=== PATIENT | male | born 1995 | race Caucasian/White ===

== ENCOUNTER 2021-02-06 22:37 | Emergency (ER) | payer OTHER ==
[~2021-02-06] VITALS: Ht 162.6 cm; Wt 61.5 kg
[2021-02-06] MEDS ORDERED: IV RINGERS SOLUTION,LACTATED 1,000 ML IV SCH (22:45)
--- NOTE | 2021-02-06 23:37 | RAD ---
Exam: Chest one view INDICATION: Mental status change TECHNIQUE: Frontal view of the chest Comparisons: None FINDINGS: The cardiomediastinal silhouette and pulmonary vessels are within normal limits. The lung and pleural spaces are clear. IMPRESSION: No acute cardiopulmonary process. Electronically signed by: Kerry Waterman MD (02/06/2021 11:34 PM) BLACK
--- NOTE | 2021-02-06 23:42 | PHYS DOC ---
Past History Past Medical History: No Pertinent History, Bronchitis, Hypertension Past Surgical History: No Surgical History Smoking: Cigarettes (hx.polysubstance abuse) Alcohol Use: None Social History Narrative: K2 General Adult EDM: Chief Complaint: DRUG ABUSE HPI: HPI: ". I was smoking some K-2.. got fucked up..." Patient is a 26 year old male prisoner from [facility] who presents with of altered mental status after smoking K-2. Patient reportedly had altered mental status at the present however was alert and oriented x3 on arrival at the emergency department. Patient did admit to smoking K2. Patient denies significant past medical history. No recent travel. No history of trauma. The patient has been serving a 16-month sentence for parole violation. Patient has past history of polysubstance abuse. Patient does use tobacco. No specific ill contacts but there have been other prisoners at [facility] who were diagnosed with Covid. Stacie ent denies history of immunosuppression. Patient denies any trauma. Patient denies any fever or chills.. Review of Systems: Review of Systems: Constitutional: Denies fever or chills Eyes: Denies change in visual acuity HENT: Denies nasal congestion or sore throat Respiratory: Denies cough or shortness of breath Cardiovascular: Denies chest pain or edema GI: Denies abdominal pain, nausea, vomiting, bloody stools or diarrhea : Denies dysuria Musculoskeletal: Denies back pain or joint pain Integument: Denies rash Neurologic: Denies headache, focal weakness or sensory changes . History of altered mental status after smoking K2 Endocrine: Denies polyuria or polydipsia Lymphatic: Denies swollen glands Psychiatric: Denies depression or anxiety Family History: Family History: Noncontributory to presentation Current Medications: Current Meds: Current Medications Medications (Trade) Dose Ordered Sig/Erin Start Time Stop Time Status Last Admin Dose Admin Lactated Ringer's 1,000 ml @ 1,000 mls/hr Q1H 02/06/21 22:45 02/06/21 23:44 Allergies: Allergies: Allergies Coded Allergies Type Severity Reaction Last Updated Verified No Known Drug Allergies 02/06/21 No Physical Exam: PE: Constitutional: no acute distress, non-toxic appearance. [] HENT: Normocephalic, atraumatic, bilateral external ears normal, oropharynx moist, no oral exudates, nose normal. [] Eyes: PERRLA, EOMI, conjunctiva normal, no discharge. [] Neck: Normal range of motion, no tenderness, supple, no stridor. [] Cardiovascular:Heart rate regular rhythm, no murmur [] Lungs & Thorax: Bilateral breath sounds equal apex with scattered wheezes on auscultation [] Abdomen: Bowel sounds decreased, soft, no tenderness, no masses, no pulsatile masses. [] Skin: Warm, dry, no erythema, no rash. Multiple tattoos. Back: No tenderness, no CVA tenderness. [] Extremities: No tenderness, no cyanosis, no clubbing, ROM intact, no edema. [] Neurologic: Alert and oriented X 3, moves all extremities on request, has distal sensory,, no focal deficits noted. [] Psychologic: Affect normal, judgement normal, mood normal. [] Current Patient Data: Vital Signs: Vital Signs Date Time Temp Pulse Resp B/P (MAP) Pulse Ox O2 Delivery O2 Flow Rate FiO2 02/06/21 22:47 97.9 91 18 128/80 (96) 96 Room Air EKG: EKG: My interpretation EKG shows sinus rhythm at 96 bpm. No acute morphology appreciated [] Radiology/Procedures: Radiology/Procedures: [][place] [address] IMAGING REPORT Signed PATIENT: LATOSHA RIVERSCCOUNT: [id number] : 1995 LOCATION: ER AGE: 26 SEX: M EXAM STATUS: PRE ER ORD. PHYSICIAN: KARINA RUEDA MD REASON: mental status change PROCEDURE: PORTABLE CHEST 1V Exam: Chest one view INDICATION: Mental status change TECHNIQUE: Frontal view of the chest Comparisons: None FINDINGS: The cardiomediastinal silhouette and pulmonary vessels are within normal limits. The lung and pleural spaces are clear. IMPRESSION: No acute cardiopulmonary process. Electronically signed by: Kerry West MD (02/06/2021 11:34 PM) [facility] DICTATED AND SIGNED BY: KERRY WEST MD DATE: 02/06/21 5922 CC: KARINA RUEDA MD ~MTH0 [address] [place] [address] IMAGING REPORT Signed PATIENT: DANELLE RIVERS: [id number] : 1995 LOCATION: ER AGE: 26 SEX: M EXAM STATUS: PRE ER ORD. PHYSICIAN: KARINA RUEDA MD REASON: mental status change PROCEDURE: PORTABLE CHEST 1V Exam: Chest one view INDICATION: Mental status change TECHNIQUE: Frontal view of the chest Comparisons: None FINDINGS: The cardiomediastinal silhouette and pulmonary vessels are within normal limits. The lung and pleural spaces are clear. IMPRESSION: No acute cardiopulmonary process. Electronically signed by: Kerry West MD (02/06/2021 11:34 PM) [facility] DICTATED AND SIGNED BY: KERRY WEST MD DATE: 02/06/21 0277 CC: KARINA RUEDA MD ~MTH0 0 Heart Score: C/O Chest Pain: No HEART Score for Chest Pain: HEART Score for Chest Pain Response (Comments) Value History Slighlty/Non-Suspicious 0 ECG Normal 0 Age < 45 0 Risk Factors 1 or 2 Risk Factors 1 Troponin < Normal Limit 0 Total 1 Risk Factors: Risk Factors: DM, Current or recent (<one month) smoker, HTN, HLP, family history of CAD, obesity. Risk Scores: Score 0 - 3: 2.5% MACE over next 6 weeks - Discharge Home Score 4 - 6: 20.3% MACE over next 6 weeks - Admit for Clinical Observation Score 7 - 10: 72.7% MACE over next 6 weeks - Early Invasive Strategies Course & Med Decision Making: Course & Med Decision Making Pertinent Labs and Imaging studies reviewed. (See chart for details) Avoid further illicit drug use. Follow-up elevated blood pressures. Return if any concerns. Impression: 1. Altered mental status-cleared 2. History of K-2 drug use 3. Mild leukocytosis 12.2 4. Mild anemia hemoglobin 11.6 5. Hypertension [] Dragon Disclaimer: Dragon Disclaimer: This electronic medical record was generated, in whole or in part, using a voice recognition dictation system. Dragon Disclaimer This chart was dictated in whole or in part using Voice Recognition software in a busy, high-work load, and often noisy Emergency Department environment. It may contain unintended and wholly unrecognized errors or omissions. KARINA RUEDA MD February 06, 2021 23:42
[2021-02-07 00:44] LABS: CALCIUM 8.5 mg/dL (8.5-10.1); CREATININE 1.3 mg/dL (0.7-1.3); GFR 67.3; POTASSIUM 3.7 mmol/L (3.5-5.1)
[2021-02-07 00:48] LABS: BASO # 0.1 x10^3/uL (0.0-0.2); BASO % 1 % (0-3); EOS # 0.1 x10^3/uL (0.0-0.7); EOS % 1 % (0-3); HEMOGLOBIN 11.6 g/dL (13.0-17.5); LYMPH # 2.1 x10^3/uL (1.0-4.8); LYMPH % 17 % (24-48); MEAN CORPUSCULAR HEMOGLOBIN 28 pg (25-35); MEAN CORPUSCULAR HGB CONC 33 g/dL (31-37); MEAN CORPUSCULAR VOLUME 86 fL (79-100); MONO # 1.1 x10^3/uL (0.0-1.1); MONO % 9 % (0-9); NEUT # 8.8 x10^3uL (1.8-7.7); NEUT % 72 % (31-73); PLATELET COUNT 361 x10^3/uL (140-400); RED CELL DISTRIBUTION WIDTH 15.7 % (11.5-14.5); WHITE BLOOD COUNT 12.2 x10^3/uL (4.0-11.0)
[2021-02-07 00:57] LABS: ALBUMIN 3.2 g/dL (3.4-5.0); BARBITURATES NEG (NEG); BENZODIAZEPINES NEG (NEG); CANNABINOIDS NEG (NEG); COCAINE NEG (NEG); DIRECT BILIRUBIN 0.1 mg/dL (0.0-0.2); METHADONE NEG (NEG); OPIATES NEG (NEG); PHENCYCLIDINE NEG (NEG); TOTAL BILIRUBIN 0.3 mg/dL (0.2-1.0); TOTAL PROTEIN 7.2 g/dL (6.4-8.2)
[2021-02-07 00:58] LABS: AMPHETAMINE/METHAMPHETAMINE NEG (NEG)
[2021-02-07 01:00] LABS: CLARITY,URINE HAZY; COLOR,URINE STRAW
[2021-02-07 01:01] LABS: BILIRUBIN,URINE NEG (NEG); GLUCOSE,URINE NEG (NEG); NITRITE,URINE NEG (NEG); UROBILINOGEN,URINE 0.2 mg/dL (0.2 mg/dL)
[2021-02-07 01:02] LABS: RBC,URINE 0 /HPF (0-2)
[2021-02-07 01:03] LABS: BACTERIA,URINE FEW /HPF (0-FEW); SQUAMOUS EPITHELIAL CELL,UR OCC /LPF
[2021-02-07] MEDS ORDERED: cloNIDine HCL 0.1 MG TABLET ONE (01:49)
[2021-02-07] MEDS ORDERED: cloNIDine HCL 0.1 MG TABLET PO ONE (02:00)
[2021-02-07 02:05] VITALS: BP 150/107
[2021-02-07 02:08] LABS: SALIC < 2.8 mg/dL (2.8-20.0)
[2021-02-07 02:09] LABS: ACETAMIN < 2.0 mcg/mL (10-30)
--- NOTE | 2021-02-07 02:51 | EKG ---
[address] [address] Test Date: 2021-02-06 Test Time: 22:49:59 Pat Name: MILDRED RIVERS Department: Room: Gender: M Registered Private Duty Nurse: : 1995 Requested By: KARINA RUEDA Order Number: [id number] Reading MD: Measurements Intervals [place] Rate: 96 P: 44 CT: 162 QRS: 61 QRSD: 86 T: 36 QT: 338 QTc: 428 Interpretive Statements SINUS RHYTHM OTHERWISE NORMAL ECG RI6.02 No previous ECG available for comparison
== END 2021-02-07 02:06 ==
LOC: ER 22:37 → EEVIPCON 22:37 → ER 02-07 02:06
DX: R41.82 Altered mental status, unspecified (principal); I10 Essential (primary) hypertension; F17.210 Nicotine dependence, cigarettes, uncomplicated; D64.9 Anemia, unspecified; D72.829 Elevated white blood cell count, unspecified
CPT/HCPCS: 36415; 71045; 80048; 80076; 80307; 81001; 82550; 83690; 83735; 83880; 84443; 84484; 85025; 87086; 93005; 96360; 96361; 99285; G0480; J7120; 80329